=== PATIENT | female | born 1990 | race Caucasian/White ===

== ENCOUNTER → 2023-02-24 | Outpatient (CLI) | payer BC, SELFPAY ==
[2023-02-24 15:14] LABS: Hemoglobin 11.1 g/dL (12.0-15.0)
[2023-02-24 16:55] LABS: Glucose Challenge Gest 1H 50g 141 mg/dL (70-140)
== END | disposition home or self-care (01) ==
LOC: MTLAB 14:13 → LAB 14:15
PROVIDERS: PCP Internal Medicine; Referring Provider Obstetrics & Gynecology; Visit Provider Obstetrics & Gynecology
DX: O99.342 Other mental disorders complicating pregnancy, second trimester (principal); Z3A.00 Weeks of gestation of pregnancy not specified
CPT/HCPCS: 36415; 82950; 85014; 85018

== ENCOUNTER → 2023-03-11 | Outpatient (CLI) | payer BC, SELFPAY ==
[2023-03-11 07:40] LABS: Glucose GTT-Gestation. Fasting 82 mg/dL (<105)
[2023-03-11 08:56] LABS: Glucose GTT-Gestational 1 Hr 188 mg/dL (<190)
[2023-03-11 10:28] LABS: Glucose GTT-Gestational 2 Hr 133 mg/dL (<165)
[2023-03-11 11:49] LABS: Glucose GTT-Gestational 3 Hr 106 L (<145)
== END | disposition home or self-care (01) ==
LOC: LAB 07:03
PROVIDERS: PCP Internal Medicine
DX: O99.810 Abnormal glucose complicating pregnancy (principal); Z3A.00 Weeks of gestation of pregnancy not specified
CPT/HCPCS: 36415; 82951; 82952

== ENCOUNTER → 2023-10-16 | Outpatient (CLI) | payer BC, SELFPAY ==
--- NOTE | 2023-10-16 11:22 | MRI_ITS ---
STUDY: MRI LEFT WRIST WITHOUT CONTRAST REASON FOR EXAM: Female, 33 years old. Pain, injury 1 1/2 months ago. TECHNIQUE: Standardized fat and water weighted pulse sequences were obtained in all 3 orthogonal planes. COMPARISON: Left wrist radiographs dated 09/30/2023. FINDINGS: Normal visualized distal radius and ulna. There is a tiny distal radioulnar joint effusion. Normal triangular fibrocartilaginous complex (TFCC). Normal carpal bones. Normal radiocarpal, intercarpal and midcarpal articulations. Normal pisotriquetral articulation. Normal visualized interosseous scapholunate ligament. Normal visualized dorsal (extrinsic) ligaments. Normal visualized volar (extrinsic) ligaments. Normal extensor tendons. Normal flexor tendons. Normal carpal tunnel with a normal median nerve. Normal carpometacarpal articulation of the thumb. Normal second through fifth carpometacarpal articulations. Normal visualized metacarpal bones. There is no demonstrated soft tissue abnormality. MRI/Upper Ext Joint Only(Routine) IMPRESSION: Tiny distal radioulnar joint effusion. Otherwise, unremarkable left wrist. Electronically Signed: Yariel Gould MD at 14:36 EST ,
--- OUTSIDE RECORDS SUMMARY | 2023-10-16 11:39 | XMS RPT_ITS | CCD ---
Author Name Unknown Address [address] [place] [address] Organization [facility] Care Team Providers Care Programmer Operator Numerical Control Name Role Phone ANGELA BURGER Primary Care Unavailable STACEY NUGENT Referring Unavaila ble JAEL DJANGO DEVELOPER, STACEY Attending Yves BURGER MD, DR ANGELA Cabezas Primary Care Unavailable GEORGE CLARKN-GASTROENTEROLOGY PHYSICIAN, ZAHEER Attending Stalni BURGER MD, DR ANGELA Cabezas Primary Care Unavailable Angela Burger MD Primary Care Provider [phone] ANGELA BURGER Primary Care Unavailable IDA, HUANG SOHA Referring Unavailabl e NAMANGELA Primary Care Unavailable IDA, HUANG SOHA Admitting Unavailabl e IDA, HUANG SOHA Attending Unavailabl e NAMANGELA Primary Care Unavailable IDA, HUANG SOHA Admitting Unavailabl e IDA, HUANG SOHA Attending Unavailabl e ANGELA BURGER Primary Care Unavailable Allergies Allergy Classification Reported Allergen(s) Allergy Type Date of Onset Reaction(s) Facility (5 sources) Doxycycline; Translations: [DOXYCYCLINE] Drug Allergy 05-07-2023 Anaphylaxis [facility] (4 sources) Diphth,Pertus(Ac ell),Tetanus; Translations: [DIPHTH,PERTUS(A CELL),TETANUS] Drug Allergy 05-07-2023 Other: See Comments [facility] Medications Completed/Discontinued Medications Medication Drug Class(es) Dates Sig (Normalized) Sig (Original) aspirin 81 mg delayed release oral tablet (2 sources) Platelet Aggregation Inhibitor, Nonsteroidal Anti-inflammatory Drug take 1 tablet by mouth once daily aspirin, enteric coated (ASPIRIN, ENTERIC COATED) 81 mg EC tablet Take 81 mg by mouth once daily. 0 Active Problems Active Problems Problem Classification Problem Date Documented Da te Episodic/Chronic Disorders of lipid metabolism (2 sources) Pure hyperglyceridemia; Translations: [Pure hyperglyceridemia] Onset: 11-11-2022 Chronic Other screening for suspected conditions (not mental disorders or infectious disease) (1 source) Inconclusive mammogram; Translations: [Inconclusive mammogram] Onset: 05-07-2022 Episodic Prolonged (1 source) Gestation period, 41 weeks; Translations: [Post-term ] 05-19-2023 Episodic Past or Other Problems Problem Classification Problem Date Documented Da te Episodic/Chronic Other complications of (1 source) Outcome of delivery, unspecified; Translations: [Normal labor] Onset: 05-07-2023 Episodic Other and delivery including normal (7 sources) ; Translations: [Encounter for supervision of normal , unspecified, unspecified trimester] Onset: 05-07-2023 04-17-2023 Episodic Results Test Name Value Interpretation Reference Range Facil ity Encounters Encounter Date Encounter Type Care Provider Facility Start: 09-30-2023 Telephone encounter Shalini guerra RN MR Procedures Date Procedure Procedure Detail Performing Clinician Start: 05-20-2023 Antibody screen HUANG VELEZ Plan of Treatment Date Care Activity Detail Author Start: 06-23-2033 Urine microalbumin profile DTaP,Tdap,Td Vaccine (2 - Td or Tdap) [facility] Start: 08-11-2023 Depression Assessment Depression Ass essment [facility] Start: 05-20-2023 INDUCTION L&D INDUCTION L&D Procedures Routine 41 weeks gestation of Expected: 05/20/2023 [facility] Work Phone: Immunizations Immunization Date Immunization Notes Care Provider Ervin kirkpartick 05-21-2023 influenza, injectabl e, quadrivalent, preservative free Carolina Clark RN [facility] Payers Date Payer Category Payer Unknown [id number] 2021 Unknown [id number] 1990 Unknown [id number] 1990 Unknown [id number] Social History Date Type Detail Facility Tobacco smoking status MNIS Tobacco smoking consumption unknown [facility] Start: 1990 Sex Assigned At Not on file [facility] Start: 05-07-2023 End: 09-25-2023 Gender identity Not on file [facility] Start: 05-07-2023 Tobacco smoking status NHIS Ex-smoker [facility] End: 05-11-2022 History of tobacco use Current smoker [facility] End: 05-11-2022 History of tobacco use Cigarette Smoker [facility] Start: 05-07-2023 Tobacco use and exposure Smokeless tobacco non-user [facility] Start: 05-07-2023 End: 09-25-2023 Alcohol intake Ex-drinker (finding) [facility] Start: 05-07-2023 End: 09-25-2023 History of Social function [facility] National Score (1-100), lower number is lower risk 61 [facility] Start: 08-21-2022 [facility] NEGATED: Highlighted rowStart: NINF History of tobacco use Passive smoker [facility] Clinical Notes 05-07-2022 to 09-30-2023 Note - Shalini Centeno RN - 09/30/2023 3:37 PM EST Note Date & Type Note Facility 09-30-2023 Miscellaneous Notes Formattin g of this note might be different from the original. Pt called in at this time requesting information on a medication she was prescribed. Pt stated she was prescribed meloxicam for a wrist injury. Reviewed Information with pt via [employer] 2022. Also discussed and reviewed alternative medications naproxen and ibuprofen which was recommended for use over meloxicam per [employer] 2022. Encouraged pt to further discuss with her physician and absorption and adsorption engineer. Encouraged pt to call back with any other needs or medications. documented in this encounter [facility] 05-24-2023 Note HNO ID: [id number] Author: Note, Interface Service: ? Author Type: ? Type: Progress Notes Filed: 05/24/2023 5:47 AM Note Text: Epic Scheduled Downtime: 05/24/2023 1:00:00 AM to 05/24/2023 1:28:00 AM [facility] 05-22-2023 Note HNO ID: [id number] Author: Huang Velez MD Service: Obstetrics Author Type: Physician Type: Progress Notes Filed: 05/22/2023 5:11 PM Note Text: OBSTETRICS PROGRESS NOTE SERVICE DATE: May 22, 2023 SERVICE TIME: 5:10 PM ASSESSMENT: 32 year old female who is Day #1 status post Vaginal, Vacuum (Extractor) delivery with female . PLAN: Routine care. Plan of care discussed with: Provider, RN, Patient. Anticipate discharge day: PPD #1 SUBJECTIVE: Patient has no current complaints. Tolerating PO intake. Urinating without difficulty. Passing flatus. Pain well controlled with current regimen. Lochia decreasing. Ambulating without difficulty. OBJECTIVE: PHYSICAL EXAM: Heart: RR, S1, S2 Lungs: clear to auscultation Breasts: Nipples intact Abdomen: Soft Fundus firm below umbilicus Non-distended Perineum: Perineum intact Extremities: No calf tenderness LAST VITALS: Pulse BP Resp O2 Sat Temp Pain 90 127/72 17 98 % 36.9 ?C (98.4 ?F) 7 Avg Min Max Vitals (last 12 hours) Flowsheet Row Name Average Min Max BP: Systolic 118 109 127 BP: Diastolic 63.50 55 72 Temp 36.7 ?C (98.05 ?F) 36.5 ?C (97.7 ?F) 36.9 ?C (98.4 ?F) Pulse 71 52 90 Resp 16 15 17 SpO2 98.5 % 98 % 99 % HT/WT/BMI: Height Weight BMI 154.9 cm (5' 1 ) 88.5 kg (195 lb) 36.84 LABS ABO/RH: 05/20/2023: A; Positive RUBELLA: 12/10/2022: Positive HANDH: Hematocrit (%) Date Value 05/22/2023 31.1 05/20/2023 35.2 Hemoglobin (g/dL) Date Value 05/22/2023 11.0 05/20/2023 12.4 Diagnostic tests reviewed for today's visit: No new labs SIGNATURE: Huang Veelz MD PATIENT NAME: Dottie Nguyen DATE: May 22, 2023 TIME: 5:10 PM [facility] 05-21-2023 Note HNO ID: [id number] Author: Trish Durán RN Service: ? Author Type: Registered Nurse Type: Nursing Progress Note Filed: 05/21/2023 10:09 AM Note Text: Patient and baby transferred to room 244. Report given to Cecilia Mccoy RN. [facility] 05-20-2023 Note HNO ID: [id number] Author: Nancy Trujillo APRN.CRNA Service: Anesthesiology Author Type: Nurse Snow Removal Supervisor Type: Anesthesia Procedure Notes Filed: 05/20/2023 6:40 PM Note Text: Attestation signed by Cordell Chino DO at 05/20/2023 6:54 PM Uneventful epidural placement ANESTHESIOLOGY PROCEDURE NOTE Epidural Block General Information Procedure Start Time/Medication Administration: 05/20/2023 5:05 PM Patient location during procedure: [facility] room Timeout Performed Pre-procedure: timeout performed Consent Obtained: Yes Patient identity confirmed: arm band and care team assembler Reason for block: labor epidural Staffing Anesthesiologist: Cordell Chino DO FOREST NURSERY WORKER: Nancy Trujillo APRN.FOREST NURSERY WORKER Performed by: KIMBERLY Preparation Sterility Preparation: hand hygiene performed prior to procedure, sterile gloves, drapes, and procedure tray, surgical cap used, mask used, sterile drape used during line insertion, skin prep agent completely dried prior to procedure Sterility Technique Not Completely Performed Due to Extreme Emergency: No Site Prep: Chloraprep Procedure Details Patient position: sitting Ultrasound Guided: No Patient monitoring: Pulse OX and NIBP Approach: midline Injection technique: NANI saline Region: lumbar Estimated Interspace: 3-4 Number of Attempts: 1 Needle and Epidural Catheter Needle type: Tuohy Needle gauge: 17G Needle length: 3.5 in Needle insertion depth: 7 cm Catheter Catheter type: end hole Catheter size: 19 G Catheter at skin depth: 14 cmTest Dose Response: negative Assessment Sensory level: T8 Beginning Pain Score: 9/10 Pain Score After Treatment: 0/10 Events: tolerated well without discomfort Comments uneventful SIGNATURE: Nancy Trujillo APRN.CRNA PATIENT NAME: Dottie Nguyen DATE: May 20, 2023 TIME: 6:38 PM CSN: [id number] [facility] documented as of this encounter (statuses as of 05/27/2023) [facility]10-10-2023 History of Past illness Narrative* Problem Noted Date Diagnosed Date Resolved Date Encounter for induction of labor 05/20/2023 05/21/2023 Normal labor 05/07/2023 05/21/2023 documented as of this encounter (statuses as of 09/30/2023) [facility]09-27-2023 NoteHNO ID: [id number] Author: Curtis Kinsey MD Service: ? Author Type: Physician Type: Progress Notes Filed: 05/07/2023 2:53 PM Note Text: PATIENT'S NAME: Dottie Nguyen MEDICAL RECORDS NUMBER: [id number] PHYSICIAN: Curtis Kinsey MD SERVICE DATE: May 07, 2023 SERVICE TIME: 9.41 AM Procedure: Insertion of Cytotec (Quarter) Tablet into the vagina for Cervical Ripening Surgeon: Curtis Kinsey MD Indication: The patient is a 32 year old female, at 39w0d who is here for induction of labor. She has no complaints. I was asked to insert Cytotec tablets into the vagina by her ECONOMICS ANALYST Physician. Pre-operative/Pre-procedure Diagnosis: Un-ripe cervix Post-operative/Post-procedure Diagnosis: Same Procedure Details: The patient was placed on her back with a slight left lateral tilt. The cervix was examined and found to be 0 cm dilated. A Cytotec 25 mcg quarter tablet was gently inserted into the vagina and maneuvered up to the posterior fornix where it was left in place. The patient tolerated the procedure. Estimated Blood Loss: None Plan: To continue with her ECONOMICS ANALYST's management plans. Curtis Kinsey MD SIGNATURE: Curtis Kinsey MD PATIENT NAME: Dottie Nguyen DATE: May 07, 2023 TIME: 2:52 PM DISCLAIMER Portions of this document may have been created with the use of voice recognition technology. Reasonable efforts have made to correct for errors. However, it may contain inaccuracies, misspellings, syntax errors, or word sense that escaped review. Please inquire further with the author for clarification if needed. Please note, the time of this note does not reflect the time I saw this patient today, but the time of this documentation.[facility]07-23-2023 Note. MICRO - Microbiology PROCEDURE: Culture Wound Aerobic with Gram Stain [*1] SOURCE: Wound (surface) BODY SITE: Vagina COLLECTED DATE/TIME: 02/27/2023 14:00 EDT RECEIVED DATE/TIME: 02/27/2023 20:50 EDT START DATE/TIME: 02/27/2023 20:50 EDT FREE TEXT SOURCE: FINAL REPORTS Final Report [] Verified Date/Time/Personnel: 03/02/2023 08:50 EDT Normal Vaginal Deana: Present Neisseria gonorrhoeae: Negative PRELIMINARY REPORTS Preliminary Report [] Verified Date/Time/Personnel: 03/01/2023 09:09 EDT Normal Vaginal Deana: Present Neisseria gonorrhoeae: Pending Preliminary Report [] Verified Date/Time/Personnel: 02/28/2023 12:39 EDT Culture results pending. STAINS GS [] Verified Date/Time/Personnel: 02/27/2023 21:41 EDT 1+ Epithelial cells 4+ Gram Positive Rods Performing Locations *1: This test was performed at: [address], [address] , [facility] ([place])05-07-2022 NoteHNO ID: [id number] Author: RT Vasquez(R) Service: ? Author Type: Technologist Type: Progress Notes Filed: 05/07/2022 10:17 AM Note Text: Radiology Service Progress Note PATIENT NAME: Dottie Nguyen DATE OF SERVICE: May 07, 2022 TIME: 10:17 AM PATIENT IDENTITY VERIFICATION COMPLETED USING TWO (2) IDENTIFIERS: Name and Date of confirmed by patient verbally. FALL SCREENING: Has the patient had 2 falls in the last year or 1 fall with injury or currently using an Ambulatory Assistive Device (Walker, Cane, Wheelchair, Crutches, etc.)? No PATIENT GENDER DATA: Female. status: : No status: NO. PATIENT RELEVANT IMPLANT DATA REVIEWED: Not Applicable RADIOLOGY DEPARTMENT: Mammography PERIPHERAL IV DATA: Not applicable SIGNED BY: RT Vasquez(R) May 07, 2022 10:17 [facility] Diagnosis , unspecified gestational age- Primary documented in this encounter [facility] note* Diagnosis , unspecified gestational age documented in this encounter [facility] note* Diagnosis 41 weeks gestation of - Primary Post term , unspecified episode of care documented in this encounter [facility] Summary Purpose Family History No Family History Records FoundNo Family History Records FoundNo Family History Records FoundNo Family History Records FoundNo Family History Records FoundNo Family History Records FoundNo Family History Records Found Advance Directives No Advanced Directives Records FoundNo Advanced Directives Records FoundNo Advanced Directives Records FoundNo Advanced Directives Records FoundNo Advanced Directives Records FoundNo Advanced Directives Records FoundNo Advanced Directives Records Found Additional Source Comments INFORMATION SOURCE (unrecogn ized section and content) DATE CREATED AUTHOR AUTHOR'S ORGANIZ ATION 03/08/2020 [facility] [place] DATE CREATED AUTHOR AUTHOR'S ORGANIZ ATION 09/28/2021 [facility] [place] DATE CREATED AUTHOR AUTHOR'S ORGANIZ ATION 05/13/2022 [facility] DATE CREATED AUTHOR AUTHOR'S ORGANIZ ATION 03/02/2023 [facility] ([place] DATE CREATED AUTHOR AUTHOR'S ORGANIZ ATION 09/27/2023 [facility] DATE CREATED AUTHOR AUTHOR'S ORGANIZ ATION 10/07/2023 [facility] Source Comments (unrecognize d section and content) In the event this informatio n is protected by the Federal Confidentiality of Alcohol and Drug Abuse Patient Records regulations: The Federal rules restrict any use of the information to criminally investigate or prosecute any alcohol or drug abuse patient.[facility] the event this information is protected by the Federal Confidentiality of Alcohol and Drug Abuse Patient Records regulations: The Federal rules restrict any use of the information to criminally investigate or prosecute any alcohol or drug abuse patient.[facility] the event this information is protected by the Federal Confidentiality of Alcohol and Drug Abuse Patient Records regulations: The Federal rules restrict any use of the information to criminally investigate or prosecute any alcohol or drug abuse patient.[facility] the event this information is protected by the Federal Confidentiality of Alcohol and Drug Abuse Patient Records regulations: The Federal rules restrict any use of the information to criminally investigate or prosecute any alcohol or drug abuse patient.[facility] the event this information is protected by the Federal Confidentiality of Alcohol and Drug Abuse Patient Records regulations: The Federal rules restrict any use of the information to criminally investigate or prosecute any alcohol or drug abuse patient.[facility] Care Teams (unrecognized sec tion and content) Programmer Operator Numerical Control Relationship Specialty Start Date End Date Angela Burger MD [address] [place] [phone] PCP - General Internal Medicine 03/27/22 Programmer Operator Numerical Control Relationship Specialty Start Date End Date Angela Burger MD [address] [place] [phone] PCP - General Internal Medicine 03/27/22 Programmer Operator Numerical Control Relationship Specialty Start Date End Date Angela Burger MD [address] [place] [phone] PCP - General Internal Medicine 03/27/22 Programmer Operator Numerical Control Relationship Specialty Start Date End Date Angela Burger MD [address] [place] [phone] PCP - General Internal Medicine 03/27/22 Reason for Visit (unrecogniz ed section and content) Reason Comments Breast Feeding FOR RECORDS PERTAINING TO PATIENTS WHO ARE OR HAVE BEEN ENROLLED IN A CHEMICAL DEPENDENCY/SUBSTANCEABUSE PROGRAM, SOME INFORMATION MAY BE OMITTED. This clinical summary was aggregated from multiple sources. Caution should be exercised in using it in the provision of clinical care. This summary normalizes information from multiple sources, and as a consequence, information in this document may materially change the coding, format and clinical context of patient data. In addition, data may be omitted in some cases. CLINICAL DECISIONS SHOULD BE BASED ON THE PRIMARY CLINICAL RECORDS. [employer] [facility]. provides no warranty or guarantee of the accuracy or completeness of information in this document.
--- NOTE | 2023-10-16 11:50 | RAD_ITS ---
HISTORY: HX SCLERAL BUCKEL PROCEDURE; PRE MRI. TECHNIQUE: 2 radiographs of the orbits. Comparison none. FINDINGS: OSSEOUS STRUCTURES: Symmetric appearance. Dental amalgam noted. SOFT TISSUES: No metallic foreign body identified in the orbits. No significant air fluid levels in the paranasal sinuses. RAD/Orbits for Foreign Body IMPRESSION: No metallic foreign body identified in the orbits. Electronically Signed: Vania Malcolm MD at 12:06 EST ,
== END | disposition home or self-care (01) ==
LOC: MRI 11:20
PROVIDERS: PCP Internal Medicine; Referring Provider Physician Assistant; Visit Provider Physician Assistant
DX: Z01.818 Encounter for other preprocedural examination (principal); S69.92XA Unspecified injury of left wrist, hand and finger(s), initial encounter; M25.532 Pain in left wrist
CPT/HCPCS: 70030; 73221